=== PATIENT | male | born 1980 | race Caucasian/White ===

== ENCOUNTER 2021-05-07 12:50 | Outpatient (CLI) | payer OTHER ==
--- NOTE | 2021-05-07 15:07 | XRAY Report ---
PROCEDURE: Lumbar Spine 2 View INDICATIONS: LUMBAGO WITH SCIATICA LEFT TECHNIQUE: 3 views of the lumbar spine were acquired. COMPARISON: None. FINDINGS: Bones: 5 [id number] vertebrae are present. There is grade 1/2 anterolisthesis of L5 on S1 chikis uring 1.2 cm. Pars defect is present at L5. Severe disc space and moderate foraminal narrowing are pr esent at L5-S1. No vertebral body compression fractures. No suspicious bony lesions. Soft tissues: Overlying bowel gas pattern is normal. No suspicious soft tissue calcifications. IMPRESSION: Grade 1/2 anterolisthesis of L5 on S1 with pars defect. Disc and foraminal narrowing are present at this level. Reviewed by: Maribel Kelly MD on 05/07/2021 3:06 PM PDT Approved by: Maribel Kelly MD on 05/07/2021 3:06 PM PDT Station ID: [id number]
[2021-05-07 20:13] LABS: ALBUMIN 4.6 g/dL (3.2-5.5); ALBUMIN/GLOBULIN RATIO 1.6 (1.0-2.2); ALKALINE PHOSPHATASE 52 IU/L (42-121); ALT ALANINE AMINOTRANSFERASE 39 IU/L (10-60); AST ASPARTATE AMINOTRANSFERASE 24 IU/L (10-42); BILIRUBIN,TOTAL 0.7 mg/dL (0.2-1.0); BUN - BLOOD UREA NITROGEN 14 mg/dL (6-20); CALCIUM 9.4 mg/dL (8.5-10.3); CARBON DIOXIDE - CO2 28 mmol/L (21-32); CHLORIDE 99 mmol/L (101-111); CHOL/HDL RATIO 4.3 (<5.0); CHOLESTEROL 252 mg/dL; CREATININE 0.8 mg/dL (0.6-1.2); GFR - MDRD 108 (>89); GLUCOSE 96 mg/dL (70-100); HDL CHOLESTEROL 59 mg/dL; LDL CHOLESTEROL,CALCULATED 140 mg/dL; LDL/HDL RATIO 2.4 (<3.6); POTASSIUM 3.7 mmol/L (3.5-5.0); SODIUM 138 mmol/L (135-145); TOTAL PROTEIN 7.4 g/dL (6.7-8.2); TRIGLYCERIDES 265 mg/dL; VLDL CHOLESTEROL 53 mg/dL
== END 2021-05-07 12:51 | disposition home or self-care (01) ==
LOC: DI.S 12:50
PROVIDERS: ATTEND Nurse Practitioner Family
DX: M54.42 Lumbago with sciatica, left side (principal); Z13.1 Encounter for screening for diabetes mellitus; Z13.220 Encounter for screening for lipoid disorders
CPT/HCPCS: 36415; 80053; 80061; 83721

== ENCOUNTER 2023-10-04 10:18 | Outpatient (CLI) | payer OTHER ==
--- NOTE | 2023-10-04 17:31 | Ultrasound Report ---
PROCEDURE: Abdomen Limited INDICATIONS: RUQ ABD PAIN TECHNIQUE: Real-time focused scanning was performed of the abdomen, with image documentation. COMPARISONS: None. FINDINGS: Liver: Liver appears diffusely increased in echotexture. Gallbladder: Unremarkable, wall thickness of 2.1 mm. Biliary ducts: Intrahepatic bile ducts are non-dilated. Extrahepatic bile duct caliber measures 3.8 mm. Normal is 6-7 mm or less in diameter, or 10 mm or less post-cholecystectomy. Pancreas: Visualized portions of the pancreas are sonographically normal. Right kidney: Normal in size and echotexture. Right kidney measures 10.4 cm long. No hydronephrosis or nephrolithiasis. No solid masses. No complex renal cystic lesions which require follow-up. Aorta: Not visualized IVC: Nonvisualized Miscellaneous: No free abdominal fluid. IMPRESSION: Suggestion of fatty liver Reviewed by: Caleb Rodríguez MD on 10/04/2023 5:29 PM PST Approved by: Caleb Rodríguez MD on 10/04/2023 5:29 PM PST Station ID: [id number]
== END 2023-10-04 10:19 | disposition home or self-care (01) ==
LOC: DI 10:18
PROVIDERS: ATTEND Registered Nurse
DX: R10.11 Right upper quadrant pain (principal)

== ENCOUNTER 2023-10-04 10:29 | Outpatient (CLI) | payer OTHER ==
--- NOTE | 2023-10-04 15:55 | XRAY Report ---
PROCEDURE: Knee 3V RT INDICATIONS: MASS ON KNEE TECHNIQUE: 3 views of the knee(s) were acquired. COMPARISON: None. FINDINGS: Bones: No fractures or dislocations. No suspicious bony lesions. Insertional enthesophyte on the inferior pole of the patella. Soft tissues: No knee joint effusion. No suspicious soft tissue calcifications or masses. IMPRESSION: Insertional enthesophyte on the inferior pole of the patella. Reviewed by: Leonel Hart MD on 10/04/2023 3:54 PM PST Approved by: Leonel Hart MD on 10/04/2023 3:54 PM PST Station ID: [id number]
== END 2023-10-04 10:30 | disposition home or self-care (01) ==
LOC: DI 10:29
PROVIDERS: ATTEND Registered Nurse
DX: M76.891 Other specified enthesopathies of right lower limb, excluding foot (principal); R10.11 Right upper quadrant pain

== ENCOUNTER 2023-10-29 07:00 | Outpatient (CLI) | payer OTHER ==
--- NOTE | 2023-10-29 14:38 | XRAY Report ---
PROCEDURE: Knee 1-2V RT INDICATIONS: RIGHT KNEE PAIN TECHNIQUE: 2 views of the knee(s) were acquired. COMPARISON: X-ray knee 10/04/2023 FINDINGS: Bones: No fractures or dislocations. No suspicious bony lesions. Inferior patellar enthesophyte. Soft tissues: Increased effusion and significant prepatellar soft tissue edema.. No suspicious soft t issue calcifications or masses. IMPRESSION: Increased prepatellar soft tissue edema. Recommend correlation to potential bursitis. Reviewed by: Maribel Kelly MD on 10/29/2023 2:37 PM PST Approved by: Maribel Kelly MD on 10/29/2023 2:37 PM PST Station ID: [id number]
== END 2023-10-29 23:59 | disposition home or self-care (01) ==
LOC: DI.S 07:00
PROVIDERS: ATTEND Registered Nurse
DX: M25.561 Pain in right knee (principal); M25.461 Effusion, right knee; R60.0 Localized edema